=== PATIENT | female | born 1955 | race African-American/Black ===

== ENCOUNTER 2022-04-07 13:40 | Inpatient (IN) | payer OTHER ==
[2022-04-07 15:10] VITALS: BMI 25.0
[2022-04-07] MEDS ORDERED: IBUPROFEN 600 MG TABLET (FP) PO PRN (15:44)
[2022-04-07] MEDS ORDERED: ONDANSETRON *ODT* 4 MG TABLET SL PRN (15:44)
[2022-04-07] MEDS ORDERED: IBUPROFEN 400 MG TABLET (FP) PO PRN (15:44)
[2022-04-07] MEDS ORDERED: BENZOCAINE/MENTHOL (CHLORASEPTIC ) LOZENGE MM PRN (15:44)
[2022-04-07] MEDS ORDERED: MAG HYDROX/AL HYDROX/SIMETH 30 ML UNIT-DOSE CUP PO PRN (15:44)
[2022-04-07] MEDS ORDERED: BISMUTH SUBSALICYLATE 524 MG/30 ML PO PRN (15:44)
[2022-04-07] MEDS ORDERED: NALOXONE HCL (KLOXXADO) 8 MG SPRAY NS PRN (15:44)
[2022-04-07] MEDS ORDERED: hydrOXYzine PAMOATE 25 MG CAPSULE (FP) PO PRN (15:44)
[2022-04-07] MEDS ORDERED: METHOCARBAMOL 500 MG TABLET PO PRN (15:44)
[2022-04-07] MEDS ORDERED: POLYETHYLENE GLYCOL (HEALTHYLAX) 3350 17 GM PACKET PO PRN (15:44)
[2022-04-07] MEDS ORDERED: MAGNESIUM HYDROX 2400MG/30ML ORAL SUSPENSION 30 ML CUP PO PRN (15:44)
[2022-04-07] MEDS ORDERED: DICYCLOMINE HCL 10 MG CAPSULE PO PRN (15:44)
[2022-04-07] MEDS ORDERED: ACETAMINOPHEN 325 MG TABLET (FP) PO PRN ×2 (15:44)
[2022-04-07] MEDS ORDERED: LOPERAMIDE HCL 2 MG CAPSULE PO PRN (15:44)
[2022-04-07] MEDS: PRENATAL VITAMINS W/ FOLIC ACID TABLET (FP) PO SCH (21:23)
[2022-04-07] MEDS: INSULIN SLIDING SCALE (NOVOLOG) 1 VIAL SQ SCH ×2 (21:25→23:22)
[2022-04-07] MEDS: FUROSEMIDE 20 MG TABLET (FP) PO SCH (21:25)
[2022-04-07] MEDS ORDERED: cloNIDine HCL 0.1 MG TABLET PO PRN (22:33)
[2022-04-07] MEDS: ATORVASTATIN CA 10 MG TABLET (FP) PO SCH (22:37)
[2022-04-07] MEDS: MELATONIN 5 MG TABLETS PO SCH (22:38)
[2022-04-07] MEDS: THIAMINE HCL 100 MG TABLET (FP) PO SCH (23:23)
[2022-04-08] MEDS: INSULIN SLIDING SCALE (NOVOLOG) 1 VIAL SQ SCH ×4 (06:52→21:45)
[2022-04-08] MEDS ORDERED: methaDONE HCL 10 MG TABLET PO SCH (09:45)
[2022-04-08] MEDS ORDERED: methaDONE 80 MG, methaDONE 20 MG PO ONE (10:00)
[2022-04-08] MEDS: PRENATAL VITAMINS W/ FOLIC ACID TABLET (FP) PO SCH (10:10)
[2022-04-08] MEDS: FUROSEMIDE 20 MG TABLET (FP) PO SCH (10:10)
[2022-04-08] MEDS: ASPIRIN 81 MG CHEWABLE TABLETS PO SCH (10:10)
[2022-04-08 10:27] LABS: HEMATOCRIT 43.9 % (32.4-45.2); HEMOGLOBIN 14.1 GM/dL (10.7-15.3); MCH 30.1 pg (25.7-33.7); MCHC 32.1 g/dl (32.0-36.0); MEAN CELL VOLUME 93.9 fl (80-96); MEAN PLT VOLUME 9.2 fl (7.5-11.1); PLATELET COUNT 153 10^3/uL (134-434); RBC 4.68 M/mm3 (3.60-5.2); RDW 15.2 % (11.6-15.6)
[2022-04-08 11:00] LABS: ALBUMIN 3.4 g/dl (3.4-5.0); BLOOD UREA NITROGEN 11.4 mg/dL (7-18)
[2022-04-08 11:01] LABS: CALCIUM 9.2 mg/dL (8.5-10.1)
[2022-04-08 11:03] LABS: CREATININE 0.8 mg/dL (0.55-1.3)
[2022-04-08 11:05] LABS: BILIRUBIN,TOTAL 0.8 mg/dL (0.2-1); TOT PROT 6.7 g/dl (6.4-8.2)
[2022-04-08] MEDS: LACTULOSE 20 GM/30 ML UDC (FOR ORAL USE ONLY) PO SCH ×2 (14:00→22:42)
[2022-04-08] MEDS: BUDESONIDE/FORMETEROL FUMARATE 160/4.5 mcg INHALER IH SCH (22:14)
[2022-04-08] MEDS: TRIAMCINOLONE ACET 0.025% CREAM 15 GM TUBE TP SCH (22:15)
[2022-04-08] MEDS: cloNIDine HCL 0.1 MG TABLET PO SCH (22:16)
[2022-04-08] MEDS: MELATONIN 5 MG TABLETS PO SCH (22:16)
[2022-04-08] MEDS: THIAMINE HCL 100 MG TABLET (FP) PO SCH (22:16)
[2022-04-08] MEDS: ATORVASTATIN CA 10 MG TABLET (FP) PO SCH (22:16)
[2022-04-08] MEDS: ALBUTEROL SO4 HFA INHALER IH PRN (22:41)
[2022-04-09] MEDS: methaDONE 80 MG, methaDONE 20 MG PO SCH (05:15)
[2022-04-09] MEDS: LACTULOSE 20 GM/30 ML UDC (FOR ORAL USE ONLY) PO SCH ×3 (05:15→22:35)
[2022-04-09] MEDS: INSULIN SLIDING SCALE (NOVOLOG) 1 VIAL SQ SCH ×4 (06:39→22:21)
[2022-04-09] MEDS: BUDESONIDE/FORMETEROL FUMARATE 160/4.5 mcg INHALER IH SCH ×2 (09:37→22:17)
[2022-04-09] MEDS: ASPIRIN 81 MG CHEWABLE TABLETS PO SCH (09:37)
[2022-04-09] MEDS: FUROSEMIDE 20 MG TABLET (FP) PO SCH (09:37)
[2022-04-09] MEDS: cloNIDine HCL 0.1 MG TABLET PO SCH ×2 (09:37→22:18)
[2022-04-09] MEDS: ALBUTEROL SO4 HFA INHALER IH PRN ×2 (09:38→22:22)
[2022-04-09] MEDS: TRIAMCINOLONE ACET 0.025% CREAM 15 GM TUBE TP SCH (09:38)
[2022-04-09] MEDS: PRENATAL VITAMINS W/ FOLIC ACID TABLET (FP) PO SCH (10:19)
[2022-04-09] MEDS: ATORVASTATIN CA 10 MG TABLET (FP) PO SCH (22:17)
[2022-04-09] MEDS: THIAMINE HCL 100 MG TABLET (FP) PO SCH (22:18)
[2022-04-09] MEDS: MELATONIN 5 MG TABLETS PO SCH (22:18)
[2022-04-09] MEDS: TRIAMCINOLONE ACET 0.025% OINTMENT 15 GM TUBE TP SCH (22:35)
[2022-04-10] MEDS: LACTULOSE 20 GM/30 ML UDC (FOR ORAL USE ONLY) PO SCH ×2 (05:39→13:23)
[2022-04-10] MEDS: methaDONE 80 MG, methaDONE 20 MG PO SCH (05:39)
[2022-04-10] MEDS: INSULIN SLIDING SCALE (NOVOLOG) 1 VIAL SQ SCH ×2 (06:32→11:21)
[2022-04-10 09:48] VITALS: RESP 16
[2022-04-10] MEDS: PRENATAL VITAMINS W/ FOLIC ACID TABLET (FP) PO SCH (10:13)
[2022-04-10] MEDS: ASPIRIN 81 MG CHEWABLE TABLETS PO SCH (10:13)
[2022-04-10] MEDS: BUDESONIDE/FORMETEROL FUMARATE 160/4.5 mcg INHALER IH SCH (10:13)
[2022-04-10] MEDS: FUROSEMIDE 20 MG TABLET (FP) PO SCH (10:13)
[2022-04-10] MEDS: TRIAMCINOLONE ACET 0.025% OINTMENT 15 GM TUBE TP SCH (10:13)
[2022-04-10] MEDS: cloNIDine HCL 0.1 MG TABLET PO SCH (10:13)
[2022-04-10] MEDS: ALBUTEROL SO4 HFA INHALER IH PRN (10:14)
[2022-04-10 12:59] VITALS: BP 132/67; PULSE 62; TEMP 96.9
== END 2022-04-10 13:48 | disposition home or self-care (01) | DRG 773 ==
LOC: YASAS 13:40 → UNDOADMIN 17:07 → Y3N 17:07
PROVIDERS: ADMIT Allergy & Immunology; ATTEND Surgery
PROC: HZ2ZZZZ Detoxification Services for Substance Abuse Treatment (ICD-10-PCS; principal; 2022-04-07)
DX: F10.230 Alcohol dependence with withdrawal, uncomplicated (principal); F11.20 Opioid dependence, uncomplicated; F41.8 Other specified anxiety disorders; E72.20 Disorder of urea cycle metabolism, unspecified; E78.2 Mixed hyperlipidemia; I25.10 Atherosclerotic heart disease of native coronary artery without angina pectoris; I10 Essential (primary) hypertension; E11.42 Type 2 diabetes mellitus with diabetic polyneuropathy; Z79.4 Long term (current) use of insulin; L30.9 Dermatitis, unspecified; M54.50 Low back pain, unspecified; G89.29 Other chronic pain; Z99.81 Dependence on supplemental oxygen; Z86.19 Personal history of other infectious and parasitic diseases; Z99.89 Dependence on other enabling machines and devices
CPT/HCPCS: 36415; 71046-TC-FY; 80053; 82140; 82962; 85027; 86593; 86780; 87811; 93005; 93010; C9803-CS; U0003; U0005